=== PATIENT | female | born 1995 | race Caucasian/White ===

== ENCOUNTER 2021-01-21 12:40 | Inpatient (IN) | payer OTHER ==
[~2021-01-21] VITALS: Ht 167.6 cm; Wt 102.7 kg
[2021-01-26] MEDS ORDERED: LACTATED RINGERS 1,000 ML IV SCH (20:30)
[2021-01-26] MEDS ORDERED: D5%-LACTATED RINGERS 1,000 ML IV SCH (20:30)
[2021-01-26] MEDS ORDERED: SODIUM CITRATE/CITRIC ACID 30 ML UDC PO PRN (20:30)
[2021-01-26] MEDS ORDERED: MISOPROSTOL 25 MCG TABLET VG PRN (20:30)
[2021-01-26] MEDS ORDERED: FENTANYL PF 100 MCG/2ML IVPush PRN (20:30)
[2021-01-26] MEDS ORDERED: TERBUTALINE 1 MG/ML, 1ML SQ PRN (20:30)
[2021-01-26] MEDS ORDERED: FENTANYL PF 100 MCG/2ML IV PRN (20:30)
[2021-01-26] MEDS ORDERED: ONDANSETRON 2MG/ML, 2ML IVPush PRN (20:30)
[2021-01-26] MEDS ORDERED: OXYTOCIN 30U/ 0.9% NaCL 500ML 500 ML IV PRN (20:30)
[2021-01-26] MEDS ORDERED: CALCIUM CARBONATE 500 MG TAB.CHEW PO PRN (20:30)
[2021-01-26] MEDS ORDERED: TERBUTALINE 1 MG/ML, 1ML IVPush PRN (20:30)
[2021-01-26] MEDS ORDERED: METOCLOPRAMIDE 5 MG/ML, 2ML IVPush PRN (20:30)
[2021-01-26] MEDS ORDERED: PLEASE ENTER ALLERGIES MC SCH ×2 (21:00→22:00)
[2021-01-26 21:14] LABS: BASOPHILS % (AUTO) 0 % (0-1); EOSINOPHILS % (AUTO) 1 % (1-7); LYMPHOCYTES % (AUTO) 20 % (22-44); MEAN CORPUSCULAR HEMOGLOBIN 30.9 pg (27.0-34.8); MEAN PLATELET VOLUME 8.9 fL (7.4-10.4); MONOCYTES % (AUTO) 7 % (2-9); NEUTROPHILS % (AUTO) 72 % (42-75); PLATELET COUNT 280 x10^3/uL (130-400); RED CELL DISTRIBUTION WIDTH 13.2 % (9.6-15.2)
[2021-01-27] MEDS ORDERED: LIDOCAINE 1%, 20ML ONE (01:25)
[2021-01-27] MEDS ORDERED: NEWBORN KIT ONE (01:25)
[2021-01-27] MEDS ORDERED: MISOPROSTOL 200 MCG TABLET ONE (01:25)
[2021-01-27] MEDS ORDERED: EPHEDRINE 50 MG/ML, 1ML IVPush PRN (08:30)
[2021-01-27] MEDS ORDERED: LACTATED RINGERS 1,000 ML IV SCH (08:30)
[2021-01-27] MEDS ORDERED: LACTATED RINGERS 1,000 ML IVBOLUS PRN (08:30)
[2021-01-27] MEDS ORDERED: NALOXONE 0.4 MG/ML, 1ML IVPush PRN (08:30)
[2021-01-27] MEDS ORDERED: FENTANYL/BUPIV./NS/PF 250 ML EPIDCONT SCH (08:30)
[2021-01-27] MEDS ORDERED: BUPIVACAINE 0.25% ONE (10:33)
[2021-01-27] MEDS ORDERED: IBUPROFEN 600 MG TABLET ONE (19:23)
[2021-01-27] MEDS: IBUPROFEN 600 MG TABLET PO PRN (19:50)
[2021-01-27] MEDS: OXYTOCIN 30U/ 0.9% NaCL 500ML 500 ML IV SCH (19:50)
[2021-01-27] MEDS ORDERED: ACETAMINOPHEN 325 MG TABLET PO PRN ×2 (20:30)
[2021-01-27] MEDS ORDERED: MISOPROSTOL 200 MCG TABLET PR PRN (20:30)
[2021-01-27] MEDS ORDERED: SIMETHICONE 80 MG CHEW TAB PO PRN (20:30)
[2021-01-27] MEDS ORDERED: OXYcodone/APAP 5/325MG TABLET PO PRN ×2 (20:30)
[2021-01-27] MEDS ORDERED: METHYLERGONOVINE 0.2 MG/ML IM PRN (20:30)
[2021-01-27] MEDS ORDERED: ONDANSETRON 2MG/ML, 2ML IV PRN (20:30)
[2021-01-27 22:00] VITALS: BP 111/67
[2021-01-28 01:36] VITALS: BP 113/73
[2021-01-28 02:58] LABS: MEAN CORPUSCULAR HEMOGLOBIN 30.8 pg (27.0-34.8); MEAN CORPUSCULAR HGB CONC 34.2 g/dL (32.4-35.8); MEAN PLATELET VOLUME 8.9 fL (7.4-10.4); PLATELET COUNT 249 x10^3/uL (130-400); RED BLOOD COUNT 3.65 x10^6/uL (3.82-5.3); RED CELL DISTRIBUTION WIDTH 13.2 % (9.6-15.2)
[2021-01-28 03:33] LABS: <PLATELET ESTIMATE> ADEQUATE; <PLT MORPHOLOGY> NORMAL PLT MORPH; <RBC MORPHOLOGY> NORMAL; BANDS%(MANUAL) 2 % (0-7); LYMPH#(MANUAL) 2.23 x10^3/uL (1-3.4); LYMPHS% (MANUAL) 9 % (22-44); MONOS#(MANUAL) 1.98 x10^3/uL (0.3-2.7); MONOS% (MANUAL) 8 % (2-9); SEG#(MANUAL) 20.09 x10^3/uL (1.8-6.8); SEGS% (MANUAL) 81 % (42-75)
[2021-01-28] MEDS: OXYTOCIN 30U/ 0.9% NaCL 500ML 500 ML IV SCH ×2 (06:30→16:30)
[2021-01-28 07:40] VITALS: BP 109/71
[2021-01-28] MEDS: PRENATAL VIT/IRON/FA 1 EACH TABLET PO SCH (07:49)
[2021-01-28] MEDS: IBUPROFEN 600 MG TABLET PO PRN ×2 (07:49→14:47)
[2021-01-28] MEDS: DOCUSATE 100 MG CAPSULE PO PRN (07:49)
[2021-01-28 12:05] VITALS: BP 127/85
[2021-01-28 16:35] VITALS: BP 108/70
[2021-01-28 20:35] VITALS: BP 120/80
[2021-01-29] MEDS: IBUPROFEN 600 MG TABLET PO PRN ×2 (02:00→07:47)
[2021-01-29] MEDS: OXYTOCIN 30U/ 0.9% NaCL 500ML 500 ML IV SCH (02:30)
[2021-01-29] MEDS: PRENATAL VIT/IRON/FA 1 EACH TABLET PO SCH (07:47)
[2021-01-29] MEDS: DOCUSATE 100 MG CAPSULE PO PRN (07:47)
== END 2021-01-29 12:15 | disposition home or self-care (01) | DRG 807 ==
LOC: LDIP 01-26 20:02 → 2NW 01-27 21:15
PROVIDERS: ADMIT Obstetrics & Gynecology; ATTEND Obstetrics & Gynecology
PROC: 10E0XZZ Delivery of Products of Conception, External Approach (ICD-10-PCS; principal; 2021-01-27)
PROC: 3E033VJ Introduction of Other Hormone into Peripheral Vein, Percutaneous Approach (ICD-10-PCS; 2021-01-27)
PROC: 0HQ9XZZ Repair Perineum Skin, External Approach (ICD-10-PCS; 2021-01-27)
PROC: 3E0R3BZ Introduction of Anesthetic Agent into Spinal Canal, Percutaneous Approach (ICD-10-PCS; 2021-01-27)
PROC: 00HU33Z Insertion of Infusion Device into Spinal Canal, Percutaneous Approach (ICD-10-PCS; 2021-01-27)
DX: O48.0 Post-term pregnancy (principal); Z37.0 Single live birth; Z3A.40 40 weeks gestation of pregnancy; Z20.822 Contact with and (suspected) exposure to COVID-19; O70.0 First degree perineal laceration during delivery
CPT/HCPCS: 36415; 85025; 86592; 86850; 86900; 87635; G0378; J2590; J7120; J7121